=== PATIENT | male | born 1980 | race African-American/Black ===

== ENCOUNTER 2025-04-16 08:45 | Emergency (ER) | payer BC, SELFPAY ==
[2025-04-16 08:52] VITALS: BP 168/94; PULSE 67; RESP 18; TEMP 36.5; O2SAT 100
--- NOTE | 2025-04-16 08:55 | ED.GENADULT ---
HPI - General Adult General Chief complaint: Urogenital-Male Stated complaint: URINARY RETENTION X 1WK Time Seen by Provider: 04/16/25 08:48 History of Present Illness HPI narrative: 45-year-old male present to the emergency department for evaluation for increased urinary retention, urinary frequency urinary urgency over the course of the last week. Related Data Allergies Allergy/AdvReac Type Severity Reaction Status Date / Time No Known Allergies Allergy Verified 04/16/25 08:46 Review of Systems Review of Systems: All systems reviewed & are unremarkable except as noted in HPI and below Exam Narrative: APPEARANCE: Well appearing, no pain, no distress, well-nourished. HEAD: normocephalic, atraumatic. EYES: PERRLA/EOMI, conjunctivae clear. NOSE: Normal no drainage EARS:TMS clear with good light reflex. THROAT: Pharynx clear, no exudate. NECK: Supple. No adenopathy, no masses. RESPIRATORY: Airway patent, respirations nonlabored. Clear to auscultation bilaterally, no rales, rhonchi, wheezing. CARDIOVASCULAR: Regular rate and rhythm without murmurs rubs or gallops. ABDOMINAL: Soft, nontender, nondistended, normal bowel sounds MUSCULOSKELETAL: Moves all extremities. Strength/ROM intact, No edema, No calf tenderness. NEURO: Alert. Cranial nerves II through XII intact. Good gait. Good coordination SKIN: Warm, dry. Normal Color Course Vital Signs Vital signs: Vital Signs Temperature 97.7 F 04/16/25 08:52 Pulse Rate 67 04/16/25 08:52 Respiratory Rate 18 04/16/25 08:52 Blood Pressure 168/94 H 04/16/25 08:52 Pulse Oximetry 100 04/16/25 08:52 Oxygen Delivery Room Air 04/16/25 08:52 Temperature 97.7 F 04/16/25 08:52 Pulse Rate 86 04/16/25 12:33 Respiratory Rate 16 04/16/25 12:33 Blood Pressure 134/77 04/16/25 12:33 Pulse Oximetry 100 04/16/25 12:33 Oxygen Delivery Room Air 04/16/25 08:52 [facility] MDM Narrative Medical decision making narrative: 45-year-old male present to the emergency department for evaluation for increased urinary retention and urinary frequency. Patient was unable to provide a urine sample. Patient's bladder scan was negative. Patient is afebrile but no leukocytosis and hemoglobin of 15. Patient has normal kidney function with a creatinine of 1.18. UA had trace ketones but no underlying of infection patient was negative for gonorrhea and chlamydia. Bladder scan was negative. Patient was able to urinate after IV fluids. Patient does describe decreased p.o. intake. No evidence of a kidney stone no evidence of infection. Patient's symptoms may be secondary to decreased p.o. intake. Patient family updated on results of workup they are comfortable plan for discharge and close follow-up. Differential Diagnosis Differential Diagnosis: Gonorrhea, chlamydia, urinary obstruction, UTI, dehydration bladder spasm, kidney stone Lab Data MDM Lab Attestation statement: I personally reviewed the patient's lab results. 04/16/25 09:15 04/16/25 09:16 Labs: Lab Results 04/16/25 04/16/25 04/16/25 Range/Units 09:15 09:16 10:23 WBC 6.2 (4.5-10.0) K/mm3 RBC 4.76 (4.6-6.20) M/mm3 Hgb 15.2 (14.0-18.0) g/dL Hct 46.1 (42.0-52.0) % MCV 96.8 (80-100) fl MCH 31.9 (26-34) pg MCHC 33.0 (32-36) g/dl RDW 12.5 (11.5-14.5) % Plt Count 291 (150-375) k/mm3 MPV 9.4 (7.4-10.4) fl Immature Gran % (Auto) 0.5 (0-0.5) % Neut % (Auto) 39.8 L (45.5-73.1) % Lymph % (Auto) 50.9 H (18.3-44.2) % [place] % (Auto) 6.4 (2.6-8.5) % Eos % (Auto) 1.6 (0-4.4) % Baso % (Auto) 0.8 (0.2-1.2) % Lymph # (Auto) 3.17 (0.9-3.2) K/mm3 [place] # (Auto) 0.4 (0.1-0.6) K/mm3 Eos # (Auto) 0.1 (0-0.3) K/mm3 Baso # (Auto) 0.1 (0.0-0.1) K/mm3 Abs Immat Gran (auto) 0.03 (0.00-0.031) K/mm3 Absolute Neuts (auto) 2.5 (1.3-6.7) K/mm3 Absolute Nucleated RBC 0.000 (0.0-0.012) K/mm3 Nucleated RBC % 0.0 (0.0-0.2) % Sodium 141 (137-145) mmol/L Potassium 3.8 (3.4-5.0) mmol/L Chloride 105 (98-107) mmol/L Carbon Dioxide 28 (22-30) mmol/L Anion Gap 8 (4-12) mmol/L BUN 17 (9-20) mg/dL Creatinine 1.18 (0.7-1.3) mg/dL Estim Creat Clear Calc 87 ml/min Estimated GFR > 60 (59 - ) Glucose 87 (65-110) mg/dL Calcium 9.3 (8.4-10.2) mg/dL Total Bilirubin 0.6 (0.2-1.3) mg/dL AST 37 (17-59) U/L ALT 43 (6-50) U/L Alkaline Phosphatase 86 (38-126) U/L Total Protein 8.0 (6.3-8.2) g/dL Albumin 4.5 (3.5-5.1) g/dL Urine Color Yellow (Yellow) Urine Appearance Clear (Clear) Urine pH 6.0 (5.0-9.0) Ur Specific [place] 1.026 (1.001-1.035) Urine Protein Negative (Negative) mg/dL Urine Glucose (UA) Negative (Negative) mg/dL Urine Ketones Trace H (Negative) mg/dL Ur Blood (Man) Negative (Negative) Urine Nitrate Negative (Negative) Urine Bilirubin Negative (Negative) Urine Urobilinogen 1.0 (<2.0) mg/dL Leukocyte Esterase Rfl Negative (Negative) DARRYN/UL C. trachomatis (PCR) Not detected (NOT DETECTE) N. gonorrhoeae (PCR) Not detected (NOT DETECTE) Discharge Plan Discharge Clinical Impression: Decreased urine output Patient Disposition: Home Condition: Stable Instructions: Antibiotic Form, Urinary Retention in Men (ED) Additional Instructions: Increase your water intake. Flomax as directed for the next 14 days. Have close follow-up with Urology. If you have any worsening symptoms then please call or return to the emergency department. Patient Language: [place] Prescriptions: New tamsulosin 0.4 mg capsule 0.4 mg PO DAILY 14 Days Qty: 14 0RF Follow-up/Referrals: Lawanda,Dwight Odell. [Primary Care Provider] Berta Osuna MD [Physician, Urology]
[2025-04-16] MEDS: LACTATED RINGERS 1,000 ML 999 ML IV CONT ×2 (09:18→11:26)
[2025-04-16 09:22] LABS: Hematocrit 46.1 % (42.0-52.0); Hemoglobin 15.2 g/dL (14.0-18.0); Immature Granulocyte Percent A 0.5 % (0-0.5); Lymphocytes Absolute Auto 3.17 K/mm3 (0.9-3.2); Mean Corpuscular HGB Conc 33.0 g/dl (32-36); Mean Corpuscular Hemoglobin 31.9 pg (26-34); Mean Corpuscular Volume 96.8 fl (80-100); Nucleated Red Blood Cells Absolute Auto 0.000 K/mm3 (0.0-0.012); Nucleated Red Blood Cells Perc 0.0 % (0.0-0.2); Platelet Count Result 291 k/mm3 (150-375); Red Blood Count 4.76 M/mm3 (4.6-6.20); White Blood Count 6.2 K/mm3 (4.5-10.0)
[2025-04-16 09:44] LABS: Alanine Aminotransferase 43 U/L (6-50); Albumin Level 4.5 g/dL (3.5-5.1); Alkaline Phosphatase 86 U/L (38-126); Anion Gap 8 mmol/L (4-12); Aspartate Amino Transferase 37 U/L (17-59); Bilirubin,Total 0.6 mg/dL (0.2-1.3); Blood Urea Nitrogen 17 mg/dL (9-20); Calcium 9.3 mg/dL (8.4-10.2); Carbon Dioxide 28 mmol/L (22-30); Chloride 105 mmol/L (98-107); Estimated CRCL calculation 87 ml/min; Estimated Glomerular Filt Rate > 60; Glucose 87 mg/dL (65-110); Potassium 3.8 mmol/L (3.4-5.0); Sodium 141 mmol/L (137-145); Total Protein 8.0 g/dL (6.3-8.2)
--- OUTSIDE RECORDS SUMMARY | 2025-04-16 10:26 | XMS_ITS | Data Portability ---
Author Organization [facility] Address [address] [place] [address] Care Team Providers Care Data Entry Specialist Name Role Phone CASS SHEA Primary Care Provider [phone] Assessment No assessment recorded. Plan of Treatment Reminders Order Date Submit Date Provider Last Modified By Organization Details Last Modified Time Details Appointments ANY 15 2025 08:15A Vincent Shea MD Not available Not available Not available Lab CBC 2024 025 KRISTEN [facility], [address], [place], [address], 11/26/2024 08:22:46 basic metabolic 1998 panel, serum or plasma 2024 025 KRISTEN [facility], [address], [place], [address], 11/26/2024 08:22:43 vitamin D, 25-hydrox y, total, serum 2024 025 KRISTEN [facility], [address], [place], [address], 11/26/2024 08:22:47 HbA1c (hemoglob in A1c), blood 2024 025 K[facility]STEN [facility], [address], [place], [address], 11/26/2024 08:22:44 lipid panel, serum 2024 025 [facility], [address], [place], [address], 11/26/2024 08:22:42 vitamin B12, serum 2024 025 [facility], [address], [place], [address], 11/26/2024 08:22:45 TSH, ultra-sen sitive, serum 2024 025 [facility], [address], [place], [address], 11/26/2024 08:22:46 HbA1c (hemoglob in A1c), blood 2023 024 [facility], [address], [place], [address], 01/25/2024 06:21:00 lipid panel, serum 2023 024 [facility], [address], [place], [address], 01/25/2024 06:21:00 Referral diabetic ophthalmo logy referral 2024 025 KRISTEN [facility], [address], [place], [address], 03/07/2025 04:09:19 diabetic ophthalmo logy referral 2023 024 binta [facility], [address], [place], [address], 09/11/2024 14:54:54 Procedures None recorded. Surgeries None recorded. Imaging None recorded. Medication Orders Mounjaro 10 mg/0.5 mL subcutane ous pen injector 2024 025 [facility] [id number] In [facility], [address] [place], [address], 11/19/2024 09:36:10 metformin ER 500 mg tablet,ex tended release 24 hr 2024 025 [facility] [address] In [facility], [address] [place] [address], [address], 11/19/2024 09:48:07 rosuvasta tin 20 mg tablet 2024 025 [facility] [address] In [facility], [address] [place] [address], [address], 11/19/2024 09:48:07 Mounjaro 7.5 mg/0.5 mL subcutane ous pen injector 2024 025 [facility] [address] In [facility], [address] [place] [address], [address], 11/19/2024 09:36:23 Vitamin D3 50 mcg (2,000 unit) tablet 2023 024 [facility] #[id number], [address] , [place], [address], 11/26/2024 09:45:25 metformin ER 500 mg tablet,ex tended release 24 hr 2023 024 [facility] #[id number], [address] [place], [address], 01/24/2024 11:36:58 Mounjaro 5 mg/0.5 mL subcutane ous pen injector 2023 024 [facility] #[id number], [address], [place], [address], 11/19/2024 09:31:48 Mounjaro 2.5 mg/0.5 mL subcutane ous pen injector [address] [facility] #[id number], [address], [place], [place], [id number], 01/24/2024 11:41:33 Trulicity 0.75 mg/0.5 mL subcutane ous pen injector [address] [facility] #[id number], [address], [place], [place], [id number], 11/01/2023 13:06:08 metformin ER 500 mg tablet,ex tended release 24 hr [address] [facility] #[id number], [address], [place], [place], [id number], 06/09/2023 14:49:37 rosuvasta tin 20 mg tablet [address] [facility] #[id number], [address], [place], [place], [id number], 06/09/2023 14:49:21 Patient TargetsNo targets recorded. Patient Instructions Encounter Date Encounter Id Patient Instructions Last Modified By Organization Details Last Modified Time 06/09/2023 [id number] Low cholesterol diet Start Trulicity once a week Start Rosuvastatin Follow up in 4 weeks [email or web address] Not available 06/09/2023 15:00:18 11/01/2023 [id number] A healthy lifestyle: care instructions oajao Not available 11/01/2023 12:45:03 type 2 diabetes: care instructions oajao Not available 11/01/2023 12:33:38 body mass index: care instructions oajao Not available 11/01/2023 12:44:53 learning about healthy weight oajao Not available 11/01/2023 12:44:53 Ophthalmology as referred Stop Trulicity (Patient's preference) Start Mounjaro Labs Follow up in 4 weeks oajao Not available 11/01/2023 13:22:35 01/24/2024 [id number] Labs Increase Mounjaro to 5 mg weekly Start Vitamin D Follow up in 3 months and PRN oajao Not available 01/24/2024 15:16:39 08/19/2024 [id number] numbness and tingling: care instructions oajao Not available 08/19/2024 09:55:18 Labs Ophthalmolo gy Increase Mounjaro to 7.5 mg weekly Podiatry? Follow up in 3 months and PRN oajao Not available 08/19/2024 13:58:47 11/19/2024 [id number] Labs as ordered Mounjaro 10 mg Ophthalmology as referred Follow up in 3 months and PRN oajao Not available 11/19/2024 09:37:05 Reason for Referral Diabetic Ophthalmology Refer ral for Uncontrolled type 2 diabetes mellitus Referring Physician: Cass Shea, Internal Medicine, Encounter Date: 11/01/2023 Diabetic Ophthalmology Refer ral for Uncontrolled type 2 diabetes mellitus HBA1C 5.5% Referring Physician: Cass Shea Internal Medicine, Encounter Date: 08/19/2024 Results Created Date Observation Date Name Description Value Unit Range Abnormal Flag Note LastModifiedBy Organization Detail LastModifiedTime 05/19/19 24 05/19/2023 LIPID PANEL cholesterol, total 250 mg/dL 100-19 9 above high normal Not Available [address], [address], 05/20/2023 06:15:19 05/19/19 24 05/19/2023 LIPID PANEL triglyceride s 481 mg/dL 0-149 above high normal Not Available [address], [address], 05/20/2023 06:15:19 05/19/19 24 05/19/2023 LIPID PANEL HDL cholesterol 35 mg/dL 40-999 below low normal Not Available [facility] [id number] [place], [address], 05/20/2023 06:15:19 05/19/19 24 05/19/2023 LIPID PANEL VLDL cholesterol carl 96 mg/dL 5-40 above high normal Not Available [facility] [address], [address], 05/20/2023 06:15:19 05/19/19 24 05/19/2023 LIPID PANEL LDL chol calc (nih) 184 mg/dL 0-99 above high normal Not Available [address], [address], 05/20/2023 06:15:19 05/19/19 24 05/19/2023 COMP. METAB OLIC PANEL (14) glucose 324 mg/dL 70-99 above high normal Not Available [address], [address], 05/20/2023 06:15:19 05/19/19 24 05/19/2023 COMP. METAB OLIC PANEL (14) BUN 13 mg/dL 6-24 Not Available [facility] & [address], [address], 05/20/2023 06:15:19 05/19/19 24 05/19/2023 COMP. METAB OLIC PANEL (14) creatinine 1.27 mg/dL 0.76-1 .27 Not Available [address], [address], 05/20/2023 06:15:19 05/19/19 24 05/19/2023 COMP. METAB OLIC PANEL (14) eGFR 72 >=60 Units for eGFR value s are mL/mi n/1.7 3 The eGFR Calcu latio n has not been valid ated for patie nts under the age of 18. If test resul ts are displ ayed for a patie nt under the age of 18, disre jong that value . Not Available [address], [address], 05/20/2023 06:15:19 05/19/19 24 05/19/2023 COMP. METAB OLIC PANEL (14) BUN/creatini ne ratio 10 9-20 Not Available [address], [address], 05/20/2023 06:15:19 05/19/19 24 05/19/2023 COMP. METAB OLIC PANEL (14) sodium 138 mmol/ L 134-14 4 Not Available [address], [address], 05/20/2023 06:15:19 05/19/19 24 05/19/2023 COMP. METAB OLIC PANEL (14) potassium 4.7 mmol/ L 3.5-5. 2 Not Available [address], [address], 05/20/2023 06:15:19 05/19/19 24 05/19/2023 COMP. METAB OLIC PANEL (14) chloride 99 mmol/ L 96-106 Not Available [address], [address], 05/20/2023 06:15:19 05/19/19 24 05/19/2023 COMP. METAB OLIC PANEL (14) carbon dioxide, total 24 mmol/ L 20-29 Not Available [address], [address], 05/20/2023 06:15:19 05/19/19 24 05/19/2023 COMP. METAB OLIC PANEL (14) calcium 9.8 mg/dL 8.7-10 .2 Not Available [address], [address], 05/20/2023 06:15:19 05/19/19 24 05/19/2023 COMP. METAB OLIC PANEL (14) protein, total 7.6 g/dL 6.0-8. 5 Not Available [address], [address], 05/20/2023 06:15:19 05/19/19 24 05/19/2023 COMP. METAB OLIC PANEL (14) albumin 4.8 g/dL 4.1-5. 1 Not Available [address], [address], 05/20/2023 06:15:19 05/19/19 24 05/19/2023 COMP. METAB OLIC PANEL (14) globulin, total 2.8 g/dL 1.5-4. 5 Not Available [address], [address], 05/20/2023 06:15:19 05/19/19 24 05/19/2023 COMP. METAB OLIC PANEL (14) A/G ratio 2.0 1.2-2. 2 Not Available [address], [address], 05/20/2023 06:15:19 05/19/19 24 05/19/2023 COMP. METAB OLIC PANEL (14) bilirubin, total 0.8 mg/dL 0.0-1. 2 Not Available [address], [address], 05/20/2023 06:15:19 05/19/19 24 05/19/2023 COMP. METAB OLIC PANEL (14) alkaline phosphatase 121 IU/L 44-121 Not Available [address], [address], 05/20/2023 06:15:19 05/19/19 24 05/19/2023 COMP. METAB OLIC PANEL (14) AST (SGOT) 26 IU/L 0-40 Not Available [address], [address], 05/20/2023 06:15:19 05/19/19 24 05/19/2023 COMP. METAB OLIC PANEL (14) ALT (SGPT) 41 IU/L 0-44 Not Available [address], [address], 05/20/2023 06:15:19 05/19/19 24 05/19/2023 CBC WITH DIFFE RENTI AL/PL ATELE T WBC 6.1 x10e3 /uL 3.4-10 .8 Not Available [address], [address], 05/20/2023 06:15:21 05/19/19 24 05/19/2023 CBC WITH DIFFE RENTI AL/PL ATELE T RBC 4.98 x10e6 /uL 4.14-5 .80 Not Available [address], [address], 05/20/2023 06:15:21 05/19/19 24 05/19/2023 CBC WITH DIFFE RENTI AL/PL ATELE T hemoglobin 14.8 g/dL 13.0-1 7.7 Not Available [address], [address], 05/20/2023 06:15:21 05/19/19 24 05/19/2023 CBC WITH DIFFE RENTI AL/PL ATELE T hematocrit 45.9 % 37.5-5 1.0 Not Available [address], [address], 05/20/2023 06:15:21 05/19/1905/19/2023 CBC WITH DIFFE RENTI AL/PL ATELE T MCV 92 fL 79-97 Not Available [address], [address], 05/20/2023 06:15:21 05/19/19 24 05/19/2023 CBC WITH DIFFE RENTI AL/PL ATELE T MCH 29.7 pg 26.6-3 3.0 Not Available [facility] & [address], [address], 05/20/2023 06:15:21 05/19/19 24 05/19/2023 CBC WITH DIFFE RENTI AL/PL ATELE T MCHC 32.2 g/dL 31.5-3 5.7 Not Available [facility] & [address], [address], 05/20/2023 06:15:21 05/19/19 24 05/19/2023 CBC WITH DIFFE RENTI AL/PL ATELE T RDW 12.5 % 11.5-1 4.5 Not Available [address], [address], 05/20/2023 06:15:21 05/19/19 24 05/19/2023 CBC WITH DIFFE RENTI AL/PL ATELE T platelets 291 x10e3 /uL 150-45 0 Not Available [address], [address], 05/20/2023 06:15:21 05/19/19 24 05/19/2023 CBC WITH DIFFE RENTI AL/PL ATELE T neutrophils 48 % notest b. Not Available [address], [address], 05/20/2023 06:15:21 05/19/19 24 05/19/2023 CBC WITH DIFFE RENTI AL/PL ATELE T lymphs 43 % notest b. Not Available [address], [address], 05/20/2023 06:15:21 05/19/19 24 05/19/2023 CBC WITH DIFFE RENTI AL/PL ATELE T monocytes 6 % notest b. Not Available [facility] & [address], [address], 05/20/2023 06:15:21 05/19/19 24 05/19/2023 CBC WITH DIFFE RENTI AL/PL ATELE T eos 2 % notest b. Not Available [address], [address], 05/20/2023 06:15:21 05/19/19 24 05/19/2023 CBC WITH DIFFE RENTI AL/PL ATELE T basos 1 % notest b. Not Available [address], [address], 05/20/2023 06:15:21 05/19/19 24 05/19/2023 CBC WITH DIFFE RENTI AL/PL ATELE T neutrophils (absolute) 2.9 x10e3 /uL 1.4-7. 0 Not Available [address], [address], 05/20/2023 06:15:21 05/19/19 24 05/19/2023 CBC WITH DIFFE RENTI AL/PL ATELE T lymphs (absolute) 2.6 x10e3 /uL 0.7-3. 1 Not Available [address], [address], 05/20/2023 06:15:21 05/19/19 24 05/19/2023 CBC WITH DIFFE RENTI AL/PL ATELE T monocytes(ab solute) 0.4 x10e3 /uL 0.1-0. 9 Not Available [address], [address], 05/20/2023 06:15:21 05/19/19 24 05/19/2023 CBC WITH DIFFE RENTI AL/PL ATELE T eos (absolute) 0.1 x10e3 /uL 0.0-0. 4 Not Available [address], [address], 05/20/2023 06:15:21 05/19/19 24 05/19/2023 CBC WITH DIFFE RENTI AL/PL ATELE T baso (absolute) 0.1 x10e3 /uL 0.0-0. 2 Not Available [address], [address], 05/20/2023 06:15:21 05/19/19 24 05/19/2023 CBC WITH DIFFE RENTI AL/PL ATELE T immature granulocytes 0.8 % notest b. Not Available [address], [address], 05/20/2023 06:15:21 05/19/19 24 05/19/2023 CBC WITH DIFFE RENTI AL/PL ATELE T immature grans (abs) 0.1 x10e3 /uL 0.0-0. 1 Not Available [address], [address], 05/20/2023 06:15:21 05/19/19 24 05/19/2023 CBC WITH DIFFE RENTI AL/PL ATELE T NRBC 0 % 0-0 Not Available [address], [address], 05/20/2023 06:15:21 05/19/19 24 05/20/2023 ALBUM IN/CR EATIN INE RATIO ,URIN E creatinine, urine 131.9 mg/dL notest ab. Not Available [address], [address], 05/20/2023 09:12:46 05/19/19 24 05/20/2023 ALBUM IN/CR EATIN INE RATIO ,URIN E albumin, urine 11.1 ug/mL notest ab. Not Available [address], [address], 05/20/2023 09:12:46 05/19/19 24 05/20/2023 ALBUM IN/CR EATIN INE RATIO ,URIN E alb/creat ratio 8 mg/g_ creat 0-29 Ya l: 0 - 29 Moder ately incre ased: 30 - 300 Sever claribel incre ased: >300 Not Available [address], [address], 05/20/2023 09:12:46 05/19/19 24 05/20/2023 UA/M W/RFL X CULTU RE, ROUTI NE specific gravity >=1.03 0 1.005- 1.030 abnormal Not Available [address], [address], 05/20/2023 09:12:48 05/19/19 24 05/20/2023 UA/M W/RFL X CULTU RE, ROUTI NE pH 5.5 5.0-7. 5 Not Available [address], [address], 05/20/2023 09:12:48 05/19/19 24 05/20/2023 UA/M W/RFL X CULTU RE, ROUTI NE urine-color YELLOW yellow Not Available [address], [address], 05/20/2023 09:12:48 05/19/19 24 05/20/2023 UA/M W/RFL X CULTU RE, ROUTI NE appearance CLEAR clear Not Available [address], [address], 05/20/2023 09:12:48 05/19/19 24 05/20/2023 UA/M W/RFL X CULTU RE, ROUTI NE WBC esterase NEGATI VE negati ve Not Available [address], [address], 05/20/2023 09:12:48 05/19/19 24 05/20/2023 UA/M W/RFL X CULTU RE, ROUTI NE protein NEGATI VE negati ve/tra ce Not Available [address], [address], 05/20/2023 09:12:48 05/19/19 24 05/20/2023 UA/M W/RFL X CULTU RE, ROUTI NE glucose 3+ negati ve abnormal Not Available [address], [address], 05/20/2023 09:12:48 05/19/19 24 05/20/2023 UA/M W/RFL X CULTU RE, ROUTI NE ketones TRACE negati ve abnormal Not Available [address], [address], 05/20/2023 09:12:48 05/19/19 24 05/20/2023 UA/M W/RFL X CULTU RE, ROUTI NE occult blood NEGATI VE negati ve Not Available [address], [address], 05/20/2023 09:12:48 05/19/19 24 05/20/2023 UA/M W/RFL X CULTU RE, ROUTI NE bilirubin NEGATI VE negati ve Not Available [address], [address], 05/20/2023 09:12:48 05/19/19 24 05/20/2023 UA/M W/RFL X CULTU RE, ROUTI NE urobilinogen ,semi-qn 0.2 mg/dL 0.2-1. 0 Not Available [address], [address], 05/20/2023 09:12:48 05/19/19 24 05/20/2023 UA/M W/RFL X CULTU RE, ROUTI NE nitrite, urine NEGATI VE negati ve Not Available [address], [address], 05/20/2023 09:12:48 05/19/19 24 05/20/2023 UA/M W/RFL X CULTU RE, ROUTI NE microscopic examination COMMEN T Micro scopi c follo ws if indic ated. Not Available [address], [address], 05/20/2023 09:12:48 05/19/19 24 05/20/2023 UA/M W/RFL X CULTU RE, ROUTI NE microscopic examination SEE BELOW: Micro scopi c was indic ated and was perfo rmed. Not Available [address], [address], 05/20/2023 09:12:48 05/19/19 24 05/20/2023 UA/M W/RFL X CULTU RE, ROUTI NE urinalysis reflex COMMEN T This speci men will not refle x to a Urine Cultu re. Not Available [address], [address], 05/20/2023 09:12:48 05/19/19 24 05/20/2023 HEMOG LOBIN A1C hemoglobin A1C 11.3 % 4.8-5. 6 above high normal Predi abete s: 5.7 - 6.4 Diabe carrillo: >6.4 Glyce adelaide contr ol for adult s with diabe carrillo: <7.0 Not Available [address], [address], 05/20/2023 09:12:49 05/19/19 24 05/19/2023 gluco se, finge rstic k, blood Blood Glucose: mg/dl 345 Not Available In-Off ice Order Internal Use Only DO Not Attach Compendium DO Not Attach Compendium, Do Not Delete/merge, [id number] 05/19/2023 14:21:33 05/19/19 24 05/20/2023 VITAM IN D, 25-HY DROXY vitamin D, 25-hydroxy 8.9 NG/mL 30.0-1 00.0 below low normal Vitam in D defic iency has been defin ed by the Insti tute of Medic ine and an Endoc rine Socie ty pract ice guide line as a level of serum 25-OH vitam in D less than 20 ng/mL (1,2) . The Endoc rine Socie ty went on to furth er defin e vitam in D insuf ficie ncy as a level betwe en 21 and 29 ng/mL (2). 1. IOM (Inst itute of Medic ine). 2010. Dieta ry refer ence intharriett es for calci um and D. Corine bautista [place]: The [facility] Press . 2. Dustin card MF, Boyd rocha [place], Clarence off-F errar i THEODORE, et al. Evalu ation , treat ment, and preve ntion of vitam in D defic iency : an Endoc rine Socie ty clini carl pract ice guide line. JCEM. 2010; 96(7) :1911 -30. Not Available [facility] [address] [place], [address], 05/20/2023 09:12:50 05/19/19 24 05/20/2023 TSH TSH 0.965 uIU/m L 0.450- 4.500 Not Available [facility] [address] [place], [address], 05/20/2023 09:12:50 05/19/19 24 05/20/2023 DIABE CARRILLO PATIE NT EDUCA TION pdf NOT APPLIC ABLE Not Available [facility] [place] [address] [place], [address], 05/20/2023 09:12:48 05/19/19 24 05/20/2023 MICRO SCOPI C EXAMI NATIO N WBC NONE SEEN /hpf 0-5 Not Available [address], [address], 05/20/2023 09:12:47 05/19/19 24 05/20/2023 MICRO SCOPI C EXAMI NATIO N RBC NONE SEEN /hpf 0-2 Not Available [address], [address], 05/20/2023 09:12:47 05/19/19 24 05/20/2023 MICRO SCOPI C EXAMI NATIO N epithelial cells (non renal) NONE SEEN /hpf 0-10 Not Available [address], [address], 05/20/2023 09:12:47 05/19/19 24 05/20/2023 MICRO SCOPI C EXAMI NATIO N casts NONE SEEN /lpf nonese en Not Available [address], [address], 05/20/2023 09:12:47 05/19/19 24 05/20/2023 MICRO SCOPI C EXAMI NATIO N bacteria NONE SEEN nonese en/few Not Available [address], [address], 05/20/2023 09:12:47 05/19/19 24 05/20/2023 DIABE CARRILLO PATIE NT EDUCA TION pdf .* Not Available [address], [address], 05/20/2023 09:12:44 05/19/19 24 05/19/2023 DIABE CARRILLO PATIE NT EDUCA TION pdf . Not Available [address], [address], 05/20/2023 06:15:20 01/24/20 24 01/25/2024 LIPID PANEL cholesterol, total 204 mg/dL 100-19 9 above high normal Not Available [facility] ([facility]) [address] [place], [address], 01/25/2024 06:20:59 01/24/20 24 01/25/2024 LIPID PANEL triglyceride s 181 mg/dL 0-149 above high normal Not Available [facility] ([facility]) [address] [place], [address], 01/25/2024 06:20:59 01/24/20 24 01/25/2024 LIPID PANEL HDL cholesterol 38 mg/dL >39 below low normal Not Available [facility] ([facility]) [address] [place], [address], 01/25/2024 06:20:59 01/24/20 24 01/25/2024 LIPID PANEL VLDL cholesterol carl 33 mg/dL 5-40 Not Available [facility] ([facility]) [address] [place], [address], 01/25/2024 06:20:59 01/24/2001/25/2024 LIPID PANEL LDL chol calc ([facility]) 133 mg/dL 0-99 above high normal Not Available [facility] ([facility]) [address] [place], [address], 01/25/2024 06:20:59 01/24/20 24 01/24/2024 HEMOG LOBIN A1C hemoglobin A1C 5.5 % 4.8-5. 6 Predi abete s: 5.7 - 6.4 Diabe carrillo: >6.4 Glyce adelaide contr ol for adult s with diabe carrillo: <7.0 Not Available [facility] ([facility]) [address] [place], [address], 01/25/2024 06:21:00 11/26/19 25 11/26/2024 LIPID PANEL cholesterol, total 149 mg/dL 100-19 9 Not Available [facility] ([facility]) [address] [place], [address], 11/26/2024 08:22:42 11/26/19 25 11/26/2024 LIPID PANEL triglyceride s 128 mg/dL 0-149 Not Available [facility] ([facility]) [address] [place], [address], 11/26/2024 08:22:42 11/26/19 25 11/26/2024 LIPID PANEL HDL cholesterol 39 mg/dL >39 below low normal Not Available [facility] ([facility]) [address] [place], [address], 11/26/2024 08:22:42 11/26/19 25 11/26/2024 LIPID PANEL VLDL cholesterol carl 23 mg/dL 5-40 Not Available [facility]) [address] [place], [address], 11/26/2024 08:22:42 11/26/19 25 11/26/2024 LIPID PANEL LDL chol calc ([facility]) 87 mg/dL 0-99 Not Available [facility]) [address] [place], [address], 11/26/2024 08:22:42 11/26/1911/26/2024 BASIC METAB OLIC PANEL (7) glucose 96 mg/dL 70-99 Not Available [facility] ([facility]) [address] [place], [address], 11/26/2024 08:22:43 11/26/19 25 11/26/2024 BASIC METAB OLIC PANEL (7) BUN 12 mg/dL 6-24 Not Available [facility] ([facility]) [address] [place], [address], 11/26/2024 08:22:43 07/28/20 25 11/26/2024 BASIC METAB OLIC PANEL (7) creatinine 1.10 mg/dL 0.76-1 .27 Not Available [facility] ([facility]) [address] [place], [address], 11/26/2024 08:22:43 11/26/1911/26/2024 BASIC METAB OLIC PANEL (7) eGFR 85 mL/mi n/1.7 3 >59 Not Available [facility] ([facility]) [address] [place], [address], 11/26/2024 08:22:43 11/26/1911/26/2024 BASIC METAB OLIC PANEL (7) BUN/creatini ne ratio 11 9-20 Not Available [facility] ([facility]) [address] [place], [address], 11/26/2024 08:22:43 11/26/19 25 11/26/2024 BASIC METAB OLIC PANEL (7) sodium 140 mmol/ L 134-14 4 Not Available [facility] ([facility]) [address] [place], [address], 11/26/2024 08:22:43 11/26/19 25 11/26/2024 BASIC METAB OLIC PANEL (7) potassium 4.5 mmol/ L 3.5-5. 2 Not Available [facility] ([facility]) [address] [place], [address], 11/26/2024 08:22:43 11/26/1911/26/2024 BASIC METAB OLIC PANEL (7) chloride 105 mmol/ L 96-106 Not Available [facility] ([facility]) [address] [place], [address], 11/26/2024 08:22:43 11/26/19 25 11/26/2024 BASIC METAB OLIC PANEL (7) carbon dioxide, total 23 mmol/ L 20-29 Not Available [facility] ([facility]) [address] [facility], [place], [address], 11/26/2024 08:22:43 11/26/1911/26/2024 HEMOG LOBIN A1C hemoglobin A1C 5.1 % 4.8-5. 6 Predi abete s: 5.7 - 6.4 Diabe carrillo: >6.4 Glyce adelaide contr ol for adult s with diabe carrillo: <7.0 Not Available [facility] ([facility]) [address] [facility], [place], [address], 11/26/2024 08:22:44 11/26/1911/26/2024 VITAM IN B12 vitamin B12 670 pg/mL 232-12 45 Not Available [facility] ([facility]) [address] [facility], [place], [address], 11/26/2024 08:22:45 11/26/1911/26/2024 TSH TSH 0.984 uIU/m L 0.450- 4.500 Not Available [facility] ([facility]) [address] [facility], [place], [address], 11/26/2024 08:22:46 11/26/1911/26/2024 CBC, PLATE LET, NO DIFFE RENTI AL WBC 5.3 x10e3 /uL 3.4-10 .8 Not Available [facility] ([facility]) [address] [facility], [place], [address], 11/26/2024 08:22:46 11/26/1911/26/2024 CBC, PLATE LET, NO DIFFE RENTI AL RBC 4.24 x10e6 /uL 4.14-5 .80 Not Available [facility] ([facility]) [address] [facility], [place], [address], 11/26/2024 08:22:46 11/26/1911/26/2024 CBC, PLATE LET, NO DIFFE RENTI AL hemoglobin 13.5 g/dL 13.0-1 7.7 Not Available [facility] ([facility]) [address] [facility], [place], [address], 11/26/2024 08:22:46 11/26/1911/26/2024 CBC, PLATE LET, NO DIFFE RENTI AL hematocrit 41.5 % 37.5-5 1.0 Not Available [facility] ([facility]) [address] [facility], [place], [address], 11/26/2024 08:22:46 11/26/1911/26/2024 CBC, PLATE LET, NO DIFFE RENTI AL MCV 98 fL 79-97 above high normal Not Available [facility] ([facility]) [address] [facility], [place], [address], 11/26/2024 08:22:46 11/26/1911/26/2024 CBC, PLATE LET, NO DIFFE RENTI AL MCH 31.8 pg 26.6-3 3.0 Not Available [facility] ([facility]) [address] [facility], [place], [address], 11/26/2024 08:22:46 11/26/1911/26/2024 CBC, PLATE LET, NO DIFFE RENTI AL MCHC 32.5 g/dL 31.5-3 5.7 Not Available [facility] ([facility]) [address] [facility], [place], [address], 11/26/2024 08:22:46 11/26/1911/26/2024 CBC, PLATE LET, NO DIFFE RENTI AL RDW 11.9 % 11.6-1 5.4 Not Available [facility] ([facility]) [address] [place], [address], 11/26/2024 08:22:46 11/26/1911/26/2024 CBC, PLATE LET, NO DIFFE RENTI AL platelets 302 x10e3 /uL 150-45 0 Not Available [facility]) [address] [facility], [place], [address], 11/26/2024 08:22:46 11/26/19 25 11/26/2024 VITAM IN D, 25-HY DROXY vitamin D, 25-hydroxy 59.3 NG/mL 30.0-1 00.0 Vitam in D defic iency has been defin ed by the Insti tute of Medic ine and an Endoc rine Socie ty pract ice guide line as a level of serum 25-OH vitam in D less than 20 ng/mL (1,2) . The Endoc rine Socie ty went on to furth er defin e vitam in D insuf ficie ncy as a level betwe en 21 and 29 ng/mL (2). 1. IOM (Inst itute of Medic ine). 2009. Percy ry refer ence audie es for calci um and D. Corine bautista DC: The Nat nal [facility] Press . 2. Dustin card MF, Boyd rocha [place], Clarence off-F errar i THEODORE, et al. Evalu ation , treat ment, and preve ntion of vitam in D defic iency : an Endoc rine Socie ty clini carl pract ice guide line. JCEM. 2010; 96(7) :1911 -30. Not Available [facility] ([facility]) [address] [facility], [place], [address], 11/26/2024 08:22:47 Result Notes None recorded. Problems Name Problem SNOMED Code Status Onset Date Resolution Date Notes Provider Name and Address Organization Details Recorded Time Body mass index 30+ - obesity 246223336 Active 2018 Cass Shea MD Attn: Gissel hutton,[address] [facility], [place], [address], [facility] 9 15:25:11 Obstructive sleep apnea syndrome 61477876 Active 2018 Cass Shea MD Attn: Gissel hutton,[address] [facility], [place], [address], [place] [facility] 9 15:25:17 Elevated blood-pressur e reading without diagnosis of hypertension 464483513 Active 2018 Cass Shea MD Attn: Gissel anni,[address] [facility], [place], [address], [place] [facility] 9 15:25:19 Influenza vaccination declined 078730112 Active 2019 Cass Shea MD Attn: Gissel anni,[address] [facility], [place], [address], [place] [facility] 0 11:40:35 Disorder of lipid metabolism 339041139 Active 2023 Cass Shea MD Attn: Gissel hutton,[address] [facility], [place], [address], [place] [facility] 4 14:18:07 SARS-CoV-2 vaccination declined 9492803512 Active 2023 Cass Shea MD Attn: Gissel hutton,[address] [facility], [place], [address], [place] [facility] 4 14:22:32 Uncontrolled type 2 diabetes mellitus 962423095 Active 2023 Cass Shea MD Attn: Gissel hutton,[address] [facility], [place], [address], [place] [facility] 4 16:14:09 Vitamin D deficiency 51380046 Active 2023 Cass Shea MD Attn: Gissel hutton,[address] [facility], [place], [address], [place] [facility] 4 12:45:44 Problem Notes None recorded. Procedures Surgical History Date Name Laterality Status Provider Name and Address Organization Details Recorded Time 5 Diabetic Foot Exam completed Cass Shea MD Attn: Accounting,[address] [facility], [place], [address], [place] [facility] 08/19/2024 13:56:17 01/19/202 4 Diabetic Foot Exam completed Cass Shea MD Attn: Accounting,[address] [facility], [place], [address], [facility] 05/19/2023 14:49:19 Unlisted px femur/knee completed Cass Shea MD Attn: Accounting,[address] [facility], [place], [address], [facility] 12/17/2018 14:54:18 procedure on stomach completed Cass Shea MD Attn: Accounting,[address] [facility], [place], [address], [facility] 12/17/2018 14:54:04 Imaging Results None recorded. Procedure Notes None recorded. Medical Equipment None Reported. Allergies No known drug allergies Medications Name Sig Start Date Stop Date Status Note LastModified by Organization Details LastModified Time azithromy joey 250 mg tablet 12/17 completed Not Available Not Available Not Available metformin ER 500 mg tablet,ex tended release 24 hr TAKE 1 TABLET BY MOUTH EVERY DAY FOR DIABETES active Not Available Not Available No t Available rosuvasta tin 20 mg tablet Take 1 tablet every day by oral route at bedtime for 90 days, for CHOLESTE ROL. 2024 active Not Available Not Available Not Avai lable cholecalc iferol (vitamin D3) 50 mcg (2,000 unit) capsule TAKE 1 CAPSULE BY MOUTH EVERY DAY DIRECTED 11/26 completed Not Available Not Available Not Available cholecalc iferol (vitamin D3) 50 mcg (2,000 unit) tablet TAKE 1 TABLET BY MOUTH EVERY DAY DIRECTED 11/26 completed Not Available Not Available Not Available OneTouch Verio test strips active Not Available Not Available Not Available Trulicity 0.75 mg/0.5 mL subcutane ous pen injector INJECT 0.75 MG SUBCUTAN EOUSLY WEEKLY 10/31 completed Changed to Eric Not Available Not Available Not Available OneTouch Verio Flex Meter active Not Available Not Available Not Available Paxlovid 300 mg (150 mg x 2)-100 mg tablets in a dose pack TAKE 1 RITONAVI R TABLET AND 2 NIRMATRE LVIR TABLETS BY MOUTH TWICE DAILY X5 DAYS 05/19 completed Not Available Not Available Not Available Mounjaro 7.5 mg/0.5 mL subcutane ous pen injector INJECT 7.5 MG EVERY WEEK BY SUBCUTAN EOUS ROUTE DIRECTED FOR 28 DAYS, FOR DIABETES 11/19 completed Not Available Not Available Not Available Mounjaro 5 mg/0.5 mL subcutane ous pen injector INJECT THE CONTENTS OF 1 PEN UNDER THE SKIN ONCE WEEKLY DIRECTED 11/19 completed Not Available Not Available Not Available Mounjaro 10 mg/0.5 mL subcutane ous pen injector INJECT 10 MG EVERY WEEK BY SUBCUTAN EOUS ROUTE FOR 28 DAYS, FOR DIABETES active Not Available Not Available No t Available Mounjaro 2.5 mg/0.5 mL subcutane ous pen injector INJECT 2.5MG INTO THE SKIN EVERY WEEK FOR 28 DAYS. STOP TRULICIT Y AND OZEMPIC 01/23 completed Increase d to 5 mg on 4 Not Available Not Available Not Available Vitals Date Recorded Body height Body mass index (BMI) Body weight Heart rate Oxygen saturation Respiratory rate Systolic And Diastolic Provider Name and Address Organization Details Last Updated DateTime 4 180.34 cm 38.3 kg/m2 513251. 18 g 76 /min 97 % 16 /min 116/80 mm[Hg] Jenifer Rico MA [facility] 4 14:25:59 Date Recorded Body height Body mass index (BMI) Body weight Heart rate Oxygen saturation Systolic And Diastolic Provider Name and Address Organization Details Last Updated DateTime 5 180.34 cm 35.4 kg/m2 503821. 1 g 79 /min 96 % 124/76 mm[Hg] Jennifer Argueta MA [facility] 5 09:33:35 Date Recorded Body height Body mass index (BMI) Body weight Heart rate Respiratory rate Oxygen saturation Systolic And Diastolic Provider Name and Address Organization Details Last Updated DateTime 4 180.34 cm 37.4 kg/m2 182836. 76 g 92 /min 18 /min 96 % 116/80 mm[Hg] Jenifer Rico MA [facility] 4 12:30:26 Date Recorded Oxygen saturation Provider Name and Address Organization Details Last Updated DateTime 11/19/2024 96 % Cass Shea MD Attn: [facility], [place], [address], [facility] 11/19/2024 09:35:19 Date Recorded Body height Body mass index (BMI) Body weight Heart rate Oxygen saturation Body temperature Systolic And Diastolic Provider Name and Address Organization Details Last Updated DateTime 5 180.34 cm 32.8 kg/m2 976552. 21 g 69 /min 94 % 97.5 [degF] 122/70 mm[Hg] Chayo Jimenez MA [facility] 5 09:20:01 Date Recorded Body height Body mass index (BMI) Body weight Heart rate Oxygen saturation Respiratory rate Systolic And Diastolic Provider Name and Address Organization Details Last Updated DateTime 4 180.34 cm 35.7 kg/m2 933328. 93 g 80 /min 98 % 16 /min 130/86 mm[Hg] Jenifer Rico MA [facility] 4 11:33:25 Social History Question Answer Notes LastModified by Organizat ion Details LastModified Time Tobacco Smoking Status Former Smoker Jenifer Rico MA null, [facility] 12/17/2018 14:39:49 Do You Have An Advance Directive? No Information not available 05/19/2023 What Is Your Level Of Caffeine Consumption? Moderate Information not available 12/17/2018 How Much Tobacco Do You Chew? None Information not available 12/17/2018 What Type Of Diet Are You Following? REGULAR Information not available 12/17/2018 Which Illicit Or Recreational Drugs Have You Used? Marrijuanna Information not available 12/17/2018 Are There Any Guns Present In Your Home? No Information not available 12/17/2018 Hard Of Hearing Or Deaf In One Or Both Ears? No Information not available 12/17/2018 Legally Blind In One Or Both Eyes? No Information no t available 12/17/2018 Marital Status Informatio n not available 12/17/2018 What Was The Date Of Your Most Recent Tobacco Screening? 11/19/2024 Information not available 11/19/2024 What Is Your Relationship Status? Information not available 05/19/2023 Do You Use Your Seat Belt Or Car Seat Routinely? Yes Information not available 05/19/2023 Seat Belts Used Routinely Yes Information not available 12/17/2018 Smoke Alarm In Home Yes Information not available 12/17/2018 Do You Have Smoke And Carbon Monoxide Detectors In Your Home? Yes Information not available 05/19/2023 How Much Tobacco Do You Smoke? No Information not available 12/17/2018 Has Tobacco Cessation Counseling Been Provided? Yes Information not available 05/19/2023 On What Date Was Tobacco Cessation Counseling Provided? 11/19/2024 Information not available 11/19/2024 Sex: Male Functional Status Question Answer Note LastModified by Organizat ion Details LastModified Time Do you use any illicit or recreational drugs? Yes marijuana Information not available 05/19/2023 Do you or have you ever used any other forms of tobacco or nicotine? Yes Information not available 05/19/2023 What is your level of alcohol consumption? Occasional Information not available 12/17/2018 Do you or have you ever used smokeless tobacco? Never used smokeless tobacco Information not available 12/17/2018 What is your occupation? disabled Information not available 12/17/2018 Do you or have you ever used e-cigarettes or vape? Never used electronic cigarettes Information not available 05/19/2023 What is your exercise level? Occasional Information not available 12/17/2018 Mental Status None recorded. Family History Relationship Description Onset Age of this Age Resolved Age Notes LastModified by Organization Details LastModified Time Father Diabetes mellitus hdoverma Not available 2018 14:40:56 Father Hypertensive disorder hdoverma Not available 2018 14:41:03 Medical History Condition Response Coronary Artery Disease N Other Y High Blood Pressure N Atrial Fibrillation N Thyroid Problems N Kidney or Bladder Problems N GI Problems N Depression N COPD N Blood Clots N Skin Problems N Anemia N Heart Attack ([place]) N Diabetes N Anxiety Disorder N Muscle, Joint, or Bone Problems N Seizures/Epilepsy N Acid Reflux (GERD) N Cancer N Stroke N Asthma N Allergies N High Cholesterol N Hepatitis N Liver Disease N Headaches N Osteoporosis N Heart Failure N Immunizations Vaccine Type Date Status Note Provider Nam e and Address Organization Details Recorded Time COVID-19, mRNA, LNP-S, PF, 30 mcg/0.3 mL dose 1 completed Cass Shea MD Attn: [address]ing[address] [place], [address], [place] [facility] 05/19/2023 14:06:48 COVID-19, mRNA, LNP-S, PF, 30 mcg/0.3 mL dose 1 completed Cass Shea MD Attn: Accounting[address] [place], [address], [place] [facility] 05/19/2023 14:06:48 Pneumococcal conjugate PCV20, polysaccharide [id number] conjugate, adjuvant, PF 4 completed EMMANUEL Ramesh, [place] [facility] 06/09/2023 14:20:36 Tdap 9 completed Not Available [facility] 05/18/2019 02:43:38 Past Encounters Encounter ID Performer Location Encounter Start Date Encounter Closed Date Diagnosis/Indication Diagnosis SNOMED-CT Code Diagnosis ICD10 Code Diagnosis IMO Codes Diagnosis Note [id number] MD Minal Gibson (Adult Med) [address] [place] [address] 12/17/2018 14:23:28 12/18/2018 08:45:25 General examination of patient 980159009 Z00.01 Marijuana user 108723232 F12.90 Discourage d Administra tion of diphtheria, pertussis, and tetanus vaccine 967368562 Z23 Elevated blood-pressure reading without diagnosis of hypertension 512000635 R03.0 Obstructiv e sleep apnea syndrome 42684590 G47.33 On CPAP Body mass index 30+ - obesity 320853878 Z68.39 [id number] [facility] [address] [place] [phone] 04/20/2020 10:13:15 04/21/2020 08:56:29 General examination of patient 243120180 Z00.01 Obstructiv e sleep apnea syndrome 29383394 G47.33 On CPAP Elevated blood-pressure reading without diagnosis of hypertension 659494224 R03.0 Body mass index 30+ - obesity 639412048 Z68.39 Influenza vaccination declined 030429788 Z28.21 [id number] MD Minal Gibson (Adult Med) [address] [place] [phone] 05/19/2023 13:37:10 05/23/2023 12:51:57 Obstructive sleep apnea syndrome 18152614 G47.33 On CPAP Disorder o f lipid metabolism 034103305 E78.9 Discussed General ex amination of patient 809994306 Z00.01 Increased frequency of urination 260259279 R35.0 DM? Uncontroll ed type 2 diabetes mellitus 375813866 E11.65 Detailed discussion Start Metformin, side effects including but not limited to nausea, abdominal cramps and an allergic reaction were discussed. Non-compli ant behavior 430725761 R46.89 Influenza vaccination declined 812141236 Z28.21 SARS-CoV-2 vaccination declined 2165154605 Z28.21 Administra tion of pneumococcal vaccine 27633978 Z23 [id number] MD Minal Gibson (Adult Med) [address] [place] [phone] 06/09/2023 14:14:24 06/12/2023 16:08:38 Uncontrolled type 2 diabetes mellitus 490472394 E11.65 His HBA1C was 11.3% on 05/19/2023S table on MetforminI will add a GLP-1 agonist (Trulicity ), to help with his diabetic control. He has no history of Thyroid cancer. The side effects including, but not limited to nausea, constipati on and diarrhea were discussed. OV 05/19/2023 etailed discussion Start Metformin, side effects including but not limited to nausea, abdominal cramps and an allergic reaction were discussed. Disorder o f lipid metabolism 358268267 E78.9 Discussed, start Rosuvastat in, side effects including myalgia were discussed. [id number] MD Minal Gibson (Adult Med) [address] [place] [phone] 11/01/2023 12:06:44 11/03/2023 14:53:34 Uncontrolled type 2 diabetes mellitus 364240099 E11.65 Stop Trulicity (Patient's preference )Start Eric, he has no history of Thyroid cancer, GI side effects were discussedL abs OV 06/09/2023Hi s HBA1C was 11.3% on 05/19/2023S table on MetforminI will add a GLP-1 agonist (Trulicity ), to help with his diabetic control. He has no history of Thyroid cancer. The side effects including, but not limited to nausea, constipati on and diarrhea were discussed. OV 05/19/2023 etailed discussion Start Metformin, side effects including but not limited to nausea, abdominal cramps and an allergic reaction were discussed. Disorder o f lipid metabolism 100328008 E78.9 Continue Rosuvastat in Body mass index 30+ - obesity 677851136 Z68.39 Overweight 657520754 E66 .3 Vitamin D deficiency 347 69187 E55.9 [id number] MD Minal Gibson (Adult Med) [address] [place] [phone] 01/24/2024 11:21:05 01/26/2024 12:38:35 Uncontrolled type 2 diabetes mellitus 454946577 E11.65 LabsIncrea se Mounjaro to 5 mg weekly, side effects were discussed OV 11/01/2023 Stop Trulicity (Patient's preference )Start Eric, he has no history of Thyroid cancer, GI side effects were discussedL abs OV 06/09/2023Hi s HBA1C was 11.3% on 05/19/2023S table on MetforminI will add a GLP-1 agonist (Trulicity ), to help with his diabetic control. He has no history of Thyroid cancer. The side effects including, but not limited to nausea, constipati on and diarrhea were discussed. OV 05/19/2023 etailed discussion Start Metformin, side effects including but not limited to nausea, abdominal cramps and an allergic reaction were discussed. Vitamin D deficiency 347 52791 E55.9 Influenza vaccination declined 075983696 Z28.21 [id number] MD [facility] (Adult Med) [address] [place] [address] 08/19/2024 09:20:30 08/20/2024 15:55:51 Uncontrolled type 2 diabetes mellitus 974207923 E11.65 LabsIncrea se Mounjaro to 5 mg weekly, GI side effects were discussed OV 11/01/2023 Stop Trulicity (Patient's preference )Start Mounjaro, he has no history of Thyroid cancer, GI side effects were discussedL abs OV 06/09/2023Hi s HBA1C was 11.3% on 05/19/2023S table on MetforminI will add a GLP-1 agonist (Trulicity ), to help with his diabetic control. He has no history of Thyroid cancer. The side effects including, but not limited to nausea, constipati on and diarrhea were discussed. OV 05/19/2023 etailed discussion Start Metformin, side effects including but not limited to nausea, abdominal cramps and an allergic reaction were discussed. Vitamin D deficiency 347 27183 E55.9 Influenza vaccination declined 569044309 Z28.21 Therapeuti c drug monitoring assay 38827417 Z51.81 816349 Numbness 47342224 R20.0 60824 [id number] MD Minal Gibson (Adult Med) [address] [place] [phone] 11/19/2024 09:10:52 11/20/2024 14:24:48 Uncontrolled type 2 diabetes mellitus 453575020 E11.65 Labs as orderedOph thalmology as referredIn crease Mounjaro to 10 mg weekly, GI side effects were discussed in detailCont inue Metformin OV 08/19/2024L absIncreas e Mounjaro to 5 mg weekly, GI side effects were discussed OV 11/01/2023 Stop Trulicity (Patient's preference )Start Mounjaro, he has no history of Thyroid cancer, GI side effects were discussedL abs OV 06/09/2023Hi s HBA1C was 11.3% on 05/19/2023S table on MetforminI will add a GLP-1 agonist (Trulicity ), to help with his diabetic control. He has no history of Thyroid cancer. The side effects including, but not limited to nausea, constipati on and diarrhea were discussed. OV 05/19/2023 etailed discussion Start Metformin, side effects including but not limited to nausea, abdominal cramps and an allergic reaction were discussed. Disorder o f lipid metabolism 681820738 E78.9 Continue Rosuvastat in Health Concerns Section Related Observation LastModified by Organization Detai ls LastModified Time None Recorded Concern Status LastModified by Organization Details LastModified Time None Recorded Advance Directives Directive N: Payers Insurance Date Sequence Insurance Name Policy Number Policy Garrido Covered Member ID Garrido Member ID Guarantor Name 05/19/2023 2 [place] [id number] Brianda Valencia [id number] Jakob Valencia 05/19/2023 1 [place] [id number] Jakob Valencia [id number] Jakob Valencia 05/19/2023 1 *SELF PAY* Emmanuel Valencia 01/31/2025 1 [place] [id number] Brianda Valencia [id number] Jakob Valencia Notes Date Note Type Note Provider Name and Address Organization Details Recorded Time 06/09/2023 text/html Diabetes F/UReported by PatientHPIFor review finger sticks, patient reportsfastin. For labs, patient reportslast a1c result: 11.3. For context, patient reportsnormal range of home blood sugars (in the low 100s),seeing eye doctor regularly,checking feet regularly,taking aspirin daily,not missing doses of medications, andno side effects from medications. For associated symptoms, patient reportsno weight gain,no weight loss,no dizziness,no sweats,no headaches,no confusion,no increased thirst,no increased appetite,no increased urination,no blurred vision,no numbness of feet, andno calluses on feet.ROS as noted in the HPI Mr Valencia is doing well, he has been exercising and he has changed his diet. He is tolerating the Metformin, feels better and he is highly motivated to control his DM. Cass Shea MD Attn: Accounting,[address] [facility], [place], [address], [place] [facility] 06/09/2023 16:31:10 11/01/2023 text/html Diabetes F/UReported by PatientHPIFor associated symptoms, patient reportsweight loss (6 lbs)but reportsno weight gain,no dizziness,no sweats,no headaches,no confusion,no increased thirst,no increased appetite,no increased urination,no blurred vision,no numbness of feet, andno calluses on feet. For labs, patient reportslast a1c result: 11.9. For context, patient reportstaking aspirin daily,not missing doses of medications, andno side effects from medications.ROS as noted in the HPI I didn't know I missed an appointmentI feel differentMy wants me to ask you about Ozempic Mr Valencia is doing well, his would prefer that he takes Mounjaro. Cass Shea MD Attn: Accounting[address] [place], [address], [facility] 11/01/2023 13:22:56 01/24/2024 text/html Diabetes F/UReported by PatientHPIFor associated symptoms, patient reportsweight loss (13 lbs)but reportsno weight gain,no dizziness,no sweats,no headaches,no confusion,no increased thirst,no increased appetite,no increased urination,no blurred vision,no numbness of feet, andno calluses on feet. For review finger sticks, patient reportsfastin. For labs, patient reportslast a1c result: 11.3%. For context, patient reportsnormal range of home blood sugars (in the low 100s),seeing eye doctor regularly, andchecking feet regularly.ROS as noted in the HPI Just my check up Cass Shea MD Attn: Accounting[address] [place], [address], [facility] 01/24/2024 15:17:05 08/19/2024 text/html Diabetes F/UReported by PatientHPIFor associated symptoms, patient reportsweight loss (2 lbs)but reportsno weight gain,no dizziness,no sweats,no headaches,no confusion,no increased thirst,no increased appetite,no increased urination,no blurred vision,no numbness of feet, andno calluses on feet. For review finger sticks, patient reportsfastin. For labs, patient reportslast a1c result: 5.5%. For context, patient reportstaking aspirin daily,not missing doses of medications, andno side effects from medications.ROS as noted in the HPI Do you think I should go up on the Mounjaro? Mr Valencia is doing well, his works now involves a lot of walking in steel toe boots and he has noticed intermittent numbness in the right hallux. It was previously bilateral. Cass Shea MD Attn: Accounting,[address] [facility], [place], [address], [facility] 08/19/2024 13:59:09 11/19/2024 text/html Diabetes F/UReported by PatientHPIFor associated symptoms, patient reportsweight loss (18 lbs)but reportsno weight gain,no dizziness,no sweats,no headaches,no confusion,no increased thirst,no increased appetite,no increased urination,no blurred vision,no numbness of feet, andno calluses on feet. For labs, patient reportslast a1c result: 5.5%. For context, patient reportstaking aspirin daily,not missing doses of medications, andno side effects from medications.ROS as noted in the HPI Just the check up Mr Valencia is doing well, tolerating the Mounjaro and being very active at work. Cass Shea MD Attn: Accounting,[address] [facility], [place], [address], [facility] 11/19/2024 09:48:58
[2025-04-16 10:30] LABS: Add Urine Microscopic? NO; Appearance Urine Clear (Clear); Glucose Urine UA Negative (Negative); Leukocyte Esterase Ur Negative LEU/UL (Negative); Nitrate Urine Negative (Negative); Specific Grav Ur 1.026 (1.001-1.035)
[2025-04-16] MEDS: TAMSULOSIN HCL 0.4 MG CAPSULE PO (12:28)
[2025-04-16 12:33] VITALS: BP 134/77; PULSE 86; RESP 16; O2SAT 100
== END 2025-04-16 12:52 | disposition home or self-care (01) ==
PROVIDERS: Emergency Provider Emergency Medicine; PCP Internal Medicine Infectious Disease
DX: R34 Anuria and oliguria (principal)
CPT/HCPCS: 36415; 80053; 81003; 85025; 87491; 87591; 96360; 96361; 99283; A9270; J7120